=== PATIENT | male | born 1990 | race Caucasian/White ===

== ENCOUNTER 2021-10-05 22:45 | Inpatient (IN) | payer MEDICAID ==
[~2021-10-05] VITALS: Ht 157.5 cm; Wt 83.2 kg
[2021-10-05] MEDS ORDERED: ONDANSETRON HCL 4MG/2ML INJ IV STA (22:51)
[2021-10-05] MEDS ORDERED: SODIUM CHLORIDE 0.9% 1,000 ML IV ONE (23:00)
[2021-10-05] MEDS ORDERED: LEVETIRACETAM 500MG PREMIX 100 ML IV ONE (23:00)
[2021-10-05 23:13] LABS: BASOPHILS % 0.9 % (0.0-2.0); EOSINOPHILS % 7.1 % (0.0-5.0); HEMATOCRIT. 43.9 % (42.0-52.0); HEMOGLOBIN. 15.3 g/dL (14.0-18.0); LYMPHOCYTES % 23.4 % (20.0-50.0); MEAN CORPUSCULAR HEMOGLOBIN 30.1 pg (28.0-32.0); MEAN CORPUSCULAR VOLUME 86.5 fL (80.0-94.0); MEAN PLATELET VOLUME 8.2 fl (7.4-10.4); MONOCYTES % 8.1 % (2.0-8.0); NEUTROPHILS % 60.5 % (40.0-76.0); PLATELET 237 x1000/uL (130-400); RED BLOOD CELL COUNT 5.08 mill/uL (4.7-6.1); RED CELL DISTRIBUTION WIDTH 13.5 % (11.6-14.6)
[2021-10-05 23:18] LABS: CHLORIDE 107 mEq/L (98-107)
[2021-10-06] MEDS ORDERED: CLONIDINE 0.1MG TABLET PO PRN (04:15)
[2021-10-06] MEDS ORDERED: ONDANSETRON HCL 4MG/2ML INJ IV PRN (04:15)
[2021-10-06] MEDS ORDERED: LORAZEPAM 2MG/ML CPJ IV PRN (04:15)
[2021-10-06] MEDS ORDERED: HYDROCODONE/ACETAMINOPHEN 5/325MG TABLET PO PRN (04:15)
[2021-10-06] MEDS ORDERED: NALOXONE HCL 0.4 MG/ML 1ML VIAL IV PRN (05:15)
[2021-10-06] MEDS: DEXT 5%/0.45% NACL 1000ML 1,000 ML IV SCH ×2 (08:30→20:00)
[2021-10-06] MEDS: ENOXAPARIN 40MG/0.4ML SYR SUBCUT SCH (09:37)
[2021-10-06 09:44] LABS: *AMPHETAMINES SCREEN URINE NEGATIVE (NEGATIVE); *BARBITURATES SCREEN URINE NEGATIVE (NEGATIVE); *BENZODIAZEPINES SCREEN URINE PRESUMTIVE POSITIVE (NEGATIVE); *COCAINE SCREEN URINE NEGATIVE (NEGATIVE); CANNABINOID URINE SCREEN NEGATIVE (NEGATIVE); METHADONE URINE SCREEN NEGATIVE (NEGATIVE); OPIATES URINE SCREEN NEGATIVE (NEGATIVE); PHENCYCLIDINE URINE SCREEN NEGATIVE (NEGATIVE)
[2021-10-06 23:45] VITALS: BP 117/63
[2021-10-06] MEDS: LEVETIRACETAM 500MG PREMIX 100 ML IV SCH (23:57)
[2021-10-07] VITALS (73 sets, daily range): BP systolic 79–186; BP diastolic 18–107
[2021-10-07] MEDS: HYDROCODONE/ACETAMINOPHEN 5/325MG TABLET PO PRN (01:06)
[2021-10-07] MEDS ORDERED: ASPIRIN 325MG EC TABLET PO SCH ×3 (02:45→06:30)
[2021-10-07] MEDS ORDERED: ASPIRIN 300MG SUPP PR SCH (02:45)
[2021-10-07] MEDS ORDERED: HEPARIN 25,000 UNITS PREMIX 250 ML IV SCH ×2 (02:45→03:00)
[2021-10-07 02:55] LABS: BASOPHILS % 0.5 % (0.0-2.0); EOSINOPHILS % 5.4 % (0.0-5.0); HEMATOCRIT. 41.9 % (42.0-52.0); LYMPHOCYTES % 51.7 % (20.0-50.0); MEAN CORPUSCULAR HEMOGLOBIN 29.4 pg (28.0-32.0); MEAN CORPUSCULAR VOLUME 87.8 fL (80.0-94.0); MEAN PLATELET VOLUME 8.3 fl (7.4-10.4); MONOCYTES % 9.7 % (2.0-8.0); NEUTROPHILS % 32.7 % (40.0-76.0); PLATELET 254 x1000/uL (130-400); RED BLOOD CELL COUNT 4.77 mill/uL (4.7-6.1); RED CELL DISTRIBUTION WIDTH 13.2 % (11.6-14.6)
[2021-10-07 03:00] LABS: CHLORIDE 107 mEq/L (98-107)
[2021-10-07] MEDS ORDERED: HEPARIN BOLUS PRN aPTT <30 IV (03:00)
[2021-10-07] MEDS ORDERED: EPINEPHRINE 10 MG in SODIUM CHLORIDE 0.9% 240 ML IV PRN (03:00)
[2021-10-07] MEDS ORDERED: HEPARIN BOLUS PRN aPTT 30-44 IV (03:00)
[2021-10-07] MEDS ORDERED: HEPARIN 60 UNITS/KG BOLUS IV SCH (03:00)
[2021-10-07] MEDS ORDERED: ASPIRIN 325MG EC TABLET PO ONE (03:00)
[2021-10-07 03:09] LABS: INR 1.1; PARTIAL THROMBOPLASTIN TIME 24.2 sec (23.4-31.0); PROTHROMBIN TIME 11.5 sec (9.6-11.0)
[2021-10-07] MEDS ORDERED: VERAPAMIL HCL 2.5 MG/1 ML 2ML VIAL IV ONE (03:32)
[2021-10-07] MEDS ORDERED: IODIXANOL 320MG/ML 100 ML BOTTLE IV ONE (03:32)
[2021-10-07] MEDS ORDERED: LIDOCAINE HCL 1% 20ML VIAL (Pyxis) INJ ONE (03:32)
[2021-10-07] MEDS ORDERED: IOHEXOL-300 100 ML BOTTLE ONE (03:33)
[2021-10-07] MEDS ORDERED: MIDAZOLAM HCL 2 MG/2 ML VIAL ONE (03:51)
[2021-10-07] MEDS ORDERED: FENTANYL CITRATE/PF 50MCG/ML 2ML VIAL ONE (03:51)
[2021-10-07] MEDS ORDERED: SODIUM CHLORIDE 0.45% 250 ML IV SCH (04:30)
[2021-10-07] MEDS ORDERED: ATROPINE SULFATE 1MG/10ML SYR IV PRN ×2 (04:30→23:15)
[2021-10-07] MEDS ORDERED: ONDANSETRON HCL 4MG/2ML INJ ONE (04:35)
[2021-10-07] MEDS: NOREPINEPHRINE 32 MG in DEXT 5% WATER 218 ML IV PRN ×2 (05:30→20:38)
[2021-10-07] MEDS ORDERED: SODIUM CHLORIDE 0.45% 250 ML IV ONE (06:00)
[2021-10-07] MEDS: ACETAMINOPHEN 325MG TABLET PO PRN ×2 (07:00→18:47)
[2021-10-07] MEDS ORDERED: EPINEPHRINE 0.1MG/ML (1:10,000) 10ML SYR ONE (08:20)
[2021-10-07] MEDS ORDERED: SODIUM BICARBONATE 8.4% 1 MEQ/ML 50ML SYR IV ONE (08:20)
[2021-10-07] MEDS: ENOXAPARIN 40MG/0.4ML SYR SUBCUT SCH (10:24)
[2021-10-07] MEDS: LEVETIRACETAM 500MG PREMIX 100 ML IV SCH (10:58)
[2021-10-07] MEDS: DEXT 5%/0.45% NACL 1000ML 1,000 ML IV SCH ×2 (10:58→21:44)
[2021-10-07] MEDS ORDERED: INFLUENZA VACCINE 05/PF 0.5 ML SYRINGE IM ONE (12:00)
[2021-10-07 12:35] LABS: CHLORIDE 109 mEq/L (98-107)
[2021-10-07 12:47] LABS: BASOPHILS % 0.4 % (0.0-2.0); EOSINOPHILS % 1.3 % (0.0-5.0); HEMATOCRIT. 41.4 % (42.0-52.0); HEMOGLOBIN. 13.8 g/dL (14.0-18.0); LYMPHOCYTES % 19.5 % (20.0-50.0); MEAN CORPUSCULAR VOLUME 87.3 fL (80.0-94.0); MONOCYTES % 7.5 % (2.0-8.0); NEUTROPHILS % 71.3 % (40.0-76.0); PLATELET 253 x1000/uL (130-400); RED BLOOD CELL COUNT 4.75 mill/uL (4.7-6.1); RED CELL DISTRIBUTION WIDTH 13.9 % (11.6-14.6)
[2021-10-07] MEDS: LEVETIRACETAM 500MG TABLET PO SCH (21:44)
[2021-10-07] MEDS ORDERED: DOPAMINE 400MG/250ML PREMIX 250 ML IV PRN (23:15)
[2021-10-08] VITALS (84 sets, daily range): BP systolic 81–157; BP diastolic 26–82
[2021-10-08] MEDS: ACETAMINOPHEN 325MG TABLET PO PRN (05:38)
[2021-10-08 06:35] LABS: CHLORIDE 108 mEq/L (98-107)
[2021-10-08 06:44] LABS: BASOPHILS % 0.3 % (0.0-2.0); HEMATOCRIT. 42.8 % (42.0-52.0); HEMOGLOBIN. 14.7 g/dL (14.0-18.0); LYMPHOCYTES % 23.8 % (20.0-50.0); MEAN CORPUSCULAR HEMOGLOBIN 29.8 pg (28.0-32.0); MEAN PLATELET VOLUME 8.7 fl (7.4-10.4); MONOCYTES % 9.2 % (2.0-8.0); NEUTROPHILS % 61.7 % (40.0-76.0); PLATELET 242 x1000/uL (130-400); RED BLOOD CELL COUNT 4.92 mill/uL (4.7-6.1); RED CELL DISTRIBUTION WIDTH 13.5 % (11.6-14.6)
[2021-10-08] MEDS ORDERED: DEXTROSE 50% WATER 50ML SYRINGE IV PRN ×2 (08:00)
[2021-10-08] MEDS ORDERED: BLOOD SUGAR DIAGNOSTIC STRIP TEST SCH (08:00)
[2021-10-08] MEDS ORDERED: INSULIN REGULAR (DRIP) 100 UNITS in SODIUM CHLORIDE 0.9% 100 ML IV SCH (09:00)
[2021-10-08] MEDS ORDERED: POTASSIUM CHLORIDE 20MEQ/PACKET PO NR (09:00)
[2021-10-08] MEDS: LEVETIRACETAM 500MG TABLET PO SCH ×2 (09:02→21:11)
[2021-10-08] MEDS: ENOXAPARIN 40MG/0.4ML SYR SUBCUT SCH (09:02)
[2021-10-08] MEDS: DEXT 5%/0.45% NACL 1000ML 1,000 ML IV SCH (09:02)
[2021-10-08] MEDS ORDERED: SODIUM CHLORIDE 0.9% 250 ML IV SCH (12:30)
[2021-10-08] MEDS: HYDROCODONE/ACETAMINOPHEN 5/325MG TABLET PO PRN (21:39)
[2021-10-09] VITALS (34 sets, daily range): BP systolic 87–129; BP diastolic 37–78
[2021-10-09] MEDS: DEXT 5%/0.45% NACL 1000ML 1,000 ML IV SCH ×2 (01:53→12:01)
[2021-10-09] MEDS: LEVETIRACETAM 500MG TABLET PO SCH (08:40)
[2021-10-09] MEDS: ENOXAPARIN 40MG/0.4ML SYR SUBCUT SCH (08:41)
[2021-10-09 09:42] LABS: BASOPHILS % 0.6 % (0.0-2.0); EOSINOPHILS % 10.8 % (0.0-5.0); HEMATOCRIT. 42.4 % (42.0-52.0); HEMOGLOBIN. 14.4 g/dL (14.0-18.0); LYMPHOCYTES % 26.7 % (20.0-50.0); MEAN CORPUSCULAR HEMOGLOBIN 29.4 pg (28.0-32.0); MEAN CORPUSCULAR VOLUME 86.6 fL (80.0-94.0); MEAN PLATELET VOLUME 8.3 fl (7.4-10.4); MONOCYTES % 11.9 % (2.0-8.0); PLATELET 226 x1000/uL (130-400); RED CELL DISTRIBUTION WIDTH 13.6 % (11.6-14.6)
[2021-10-09 09:47] LABS: CHLORIDE 106 mEq/L (98-107)
[2021-10-09] MEDS ORDERED: DIPHENHYDRAMINE 50MG/ML VIAL IV PRN (11:45)
== END 2021-10-09 16:00 | disposition home or self-care (01) | DRG 53 ==
LOC: ER 23:47 → 8WST 10-06 02:57 → EDBEDREQ 10-06 03:34 → EDBEDREQTM 10-06 03:34 → ENRESERV 10-06 21:42 → ER 10-06 23:13 → CVICU 10-07 04:35
PROVIDERS: ADMIT Hospitalist; ATTEND Hospitalist
PROC: 5A12012 Performance of Cardiac Output, Single, Manual (ICD-10-PCS; principal; 2021-10-07)
PROC: 4A023N7 Measurement of Cardiac Sampling and Pressure, Left Heart, Percutaneous Approach (ICD-10-PCS; 2021-10-07)
PROC: B2111ZZ Fluoroscopy of Multiple Coronary Arteries using Low Osmolar Contrast (ICD-10-PCS; 2021-10-07)
DX: G40.919 Epilepsy, unspecified, intractable, without status epilepticus (principal); I46.9 Cardiac arrest, cause unspecified; I21.3 ST elevation (STEMI) myocardial infarction of unspecified site; R57.9 Shock, unspecified; I25.10 Atherosclerotic heart disease of native coronary artery without angina pectoris; Z20.822 Contact with and (suspected) exposure to COVID-19; I44.1 Atrioventricular block, second degree
CPT/HCPCS: 36415; 70551; 71045; 80048; 80053; 80305; 80320; 82542; 82962; 83735; 84484; 85025; 85347; 87426; 90686; 92950; 93005; 93306; 93458; 96365; 96366; 96375; 99291; C1769; C1887; C1893; J1200; J1644; J1650; J1815; J1953; J2250; J2405; J3010; J3490; J7030; J7050; J7060; Q9967; G0480

== ENCOUNTER 2021-11-19 11:58 | Emergency (ER) | payer MEDICAID ==
[~2021-11-19] VITALS: Ht 170.2 cm; Wt 80.0 kg
[2021-11-19 12:14] VITALS: BP 119/85
[2021-11-19] MEDS ORDERED: KEPP500 PO (12:27)
[2021-11-19] MEDS ORDERED: LIDOCAINE HCL 1% 20ML VIAL (Pyxis) INJ INFIL ONE (12:45)
[2021-11-19] MEDS ORDERED: LIDOCAINE HCL 1% 10 MG/ML 10ML VIAL INJ NR (13:00)
[2021-11-19] MEDS ORDERED: TETANUS, DIPHTHERIA, PERTUSSIS VAC/PF 0.5ML (>10YR OLD) IM ONE (14:45)
== END 2021-11-19 15:20 | disposition home or self-care (01) ==
LOC: ER 11:58
DX: S61.411A Laceration without foreign body of right hand, initial encounter (principal); W29.0XXA Contact with powered kitchen appliance, initial encounter; Y93.89 Activity, other specified; Y92.89 Other specified places as the place of occurrence of the external cause; Y99.0 Civilian activity done for income or pay
CPT/HCPCS: 12001; 90471; 90715; 93005; 99283; J3490

== ENCOUNTER 2021-12-19 05:36 | Emergency (ER) | payer MEDICAID ==
[~2021-12-19] VITALS: Ht 167.6 cm; Wt 81.0 kg
[~2021-12-19 05:36] MED LIST: KEPP500 PO
[2021-12-19 06:00] VITALS: BP 134/89
[2021-12-19] MEDS ORDERED: TETRACAINE 0.5% OPHTH DROPS 4ML BOTHEYE ONE (06:30)
[2021-12-19] MEDS ORDERED: FLUORESCEIN SODIUM 1MG/STRIP BOTHEYE ONE (06:30)
[2021-12-19] MEDS ORDERED: DIPHENHYDRAMINE 50MG CAPSULE PO ONE (07:00)
[2021-12-19] MEDS ORDERED: POLY15DR31 EACHEYE (09:19)
[2021-12-19] MEDS ORDERED: DIPH25CA83 MT (09:20)
== END 2021-12-19 09:50 | disposition home or self-care (01) ==
LOC: ER 05:36
DX: H10.13 Acute atopic conjunctivitis, bilateral (principal); R03.0 Elevated blood-pressure reading, without diagnosis of hypertension; G40.909 Epilepsy, unspecified, not intractable, without status epilepticus
CPT/HCPCS: 99283; Q0163